=== PATIENT | male | born 1965 | race Caucasian/White ===

== ENCOUNTER 2017-06-25 08:50 | Inpatient (IN) | payer MEDICAID ==
[2017-06-25] MEDS ORDERED: cefOXitin SODIUM 2 GM in D5W 100 ML IV ONE (11:09)
--- NOTE | 2017-06-25 12:13 | PDHPUP ---
History & Physical Update H&P update statement: This history and physical update is based on an assessment of the patient which was completed after admission or registration (within 24 hours), but prior to the surgery/procedure. H&P update: H&P reviewed & patient examined, no change in patient's condition since H&P completed
[2017-06-25] MEDS ORDERED: BUPIVACAINE 0.5% 30 ML SDV ONE (12:23)
[2017-06-25] MEDS ORDERED: MIDAZOLAM 2 MG/2 ML VIAL IVP ONE (14:06)
--- NOTE | 2017-06-25 14:06 | PDANEPAE ---
ANE History of Present Illness R hemicolectomy ANE Past Medical History - Cardiovascular History Hx Hypertension: No Hx Arrhythmias: No Hx Chest Pain: No Hx Coronary Artery / Peripheral Vascular Disease: No Hx CHF / Valvular Disease: No Hx Palpitations: No - Pulmonary History Hx COPD: No Hx Asthma/Reactive Airway Disease: No Hx Recent Upper Respiratory Infection: No Hx Oxygen in Use at Home: No Hx Sleep Apnea: No Sleep Apnea Screening Result - Last Documented: Negative - Neurologic History Hx Cerebrovascular Accident: No Hx Seizures: No Hx Dementia: No - Endocrine History Hx Diabetes: No - Renal History Hx Renal Disorders: No - Liver History Hx Hepatic Disorders: No - Neurological & Psychiatric Hx Hx Neurological and Psychiatric Disorders: No - Cancer History Hx Cancer: No - Congenital Disorder History Hx Congenital Disorders: No - GI History Hx Gastrointestinal Disorders: Yes Gastrointestinal History Comment: colon mass - Chronic Pain History Chronic Pain: No - Surgical History Prior Surgeries: R arm "trauma surgery" involving brachial vein ANE Review of Systems Review of systems is: negative Review of Systems: - Exercise capacity Exercise capacity: >=4 METS METS (RN): 5 METS ANE Patient History - Allergies Allergies/Adverse Reactions: No Known Allergies Allergy (Unverified 06/24/17 12:07) - Home Medications Home medications: home medication list seen and reviewed Home Medications: NK [No Known Home Meds] 06/24/17 [Last Taken Unknown] - NPO status NPO Status: no food or drink >8 hours NPO Since - Liquids (Date): 06/24/17 NPO Since - Liquids (Time): 10:00 NPO Since - Solids (Date): 06/24/17 NPO Since - Solids (Time): 23:30 - Anes Hx Anes Hx: no prior problems - Smoking Hx Smoking Status: Never smoked - Family Anes Hx Family Anes Hx: none ANE Labs/Vital Signs - Labs Result Diagrams: 06/25/17 13:20 - Vital Signs Blood Pressure: 141/96 Heart Rate: 75 Respiratory Rate: 16 O2 Sat (%): 94 Height: 175.26 cm Weight: 68.039 kg ANE Physical Exam - Airway Neck exam: FROM Mallampati Score: Class 1 Mouth exam: poor dentition - Pulmonary Pulmonary: no respiratory distress - Cardiovascular Cardiovascular: regular rate and rhythym - ASA Status ASA Status: II ANE Anesthesia Plan Anesthesia Plan: general endotracheal anesthesia
[2017-06-25] MEDS ORDERED: ONDANSETRON 4 MG/2 ML VIAL ONE (14:22)
[2017-06-25] MEDS ORDERED: PROPOFOL 200 MG/20 ML VIAL ONE (14:22)
[2017-06-25] MEDS ORDERED: fentaNYL 100 MCG/2 ML INJ ONE ×4 (14:22→18:05)
[2017-06-25] MEDS ORDERED: HYDROmorphONE/DILAUDID 2 MG/ML INJ ONE (14:22)
[2017-06-25] MEDS ORDERED: ROCURONIUM 50 MG/5 ML VIAL ONE ×2 (14:22→15:32)
[2017-06-25] MEDS ORDERED: LIDOCAINE 2% 100 MG/5 ML SYR ONE (14:22)
[2017-06-25] MEDS ORDERED: SUGAMMADEX SODIUM 200 MG/2 ML VIAL IVP ONE (14:22)
[2017-06-25] MEDS ORDERED: DEXAMETHASONE 4 MG/ML VIAL ONE (14:22)
[2017-06-25] MEDS ORDERED: MIDAZOLAM 2 MG/2 ML VIAL ONE (14:28)
[2017-06-25] MEDS ORDERED: ESMOLOL HCL 100 MG/10 ML VIAL IV ONE (15:36)
[2017-06-25] MEDS ORDERED: LABETALOL HCL 5 MG/ML 20 ML MDV ONE (15:41)
[2017-06-25] MEDS ORDERED: ACETAMINOPHEN 500 MG TAB PO PRN (15:47)
[2017-06-25] MEDS ORDERED: ENALAPRILAT DIHYDRATE 1.25 MG/ML VIAL IVP PRN (15:47)
[2017-06-25] MEDS ORDERED: MEPERIDINE 25 MG/ML SYR IVP PRN (15:47)
[2017-06-25] MEDS ORDERED: DEXAMETHASONE 4 MG/ML VIAL IVP PRN (15:47)
[2017-06-25] MEDS ORDERED: OXYCODONE/APAP 5/325 TAB PO PRN (15:47)
[2017-06-25] MEDS ORDERED: ONDANSETRON 4 MG/2 ML VIAL IVP PRN ×2 (15:47→16:45)
[2017-06-25] MEDS ORDERED: NALOXONE HCL 0.4 MG/ML INJ IVP PRN (15:47)
[2017-06-25] MEDS ORDERED: PROMETHAZINE HCL 25 MG/ML INJ IVP PRN (15:47)
[2017-06-25] MEDS ORDERED: LABETALOL HCL 5 MG/ML 20 ML MDV IVP PRN (15:47)
[2017-06-25] MEDS ORDERED: HYDROCODONE/APAP 5/325 TAB PO PRN (15:47)
--- NOTE | 2017-06-25 15:50 | POSTANESTH ---
Post Anesthetic Evaluation Cardiovascular Status: Tx Hyper/Hypo-tension Respiratory Status: Normal, Stable, Similar to Pre-op Cond. Level of Consciousness/Mental Status: Can Participate in Eval, Mildly Sleepy, Arousable Pain Control: Adequate, Prn Tx Ordered Nausea/Vomiting Control: Adequate, Prn Tx Ordered Complications Possibly Related to Anesthesia: None Noted
[2017-06-25] MEDS ORDERED: KETOROLAC 30 MG/1 ML SDV ONE (16:11)
--- NOTE | 2017-06-25 16:44 | POSTOPPROG ---
Post Op Note Date of Operation: 06/25/17 Surgeon: Aquiles Rosa Anesthesiologist: Cole Lundberg Anesthesia: GET(General Endotracheal) Pre-op Diagnosis: Cecal adenocarcinoma Post-op Diagnosis: Same Procedure: Lap Right Hemicolectomy Findings: Distal cecal tumor. Normal Liver/peritoneal surfaces Inf/Abcess present in the surg proc area at time of surgery?: No EBL: Minimal Specimen(s): right colon
[2017-06-25] MEDS ORDERED: HYDROmorphONE/DILAUDID 1 MG/ML INJ IVP PRN (16:45)
[2017-06-25] MEDS: fentaNYL 100 MCG/2 ML INJ IVP PRN ×6 (16:51→18:15)
[2017-06-25] MEDS ORDERED: HYDROmorphONE/DILAUDID 1 MG/ML INJ ONE ×2 (16:53→17:14)
[2017-06-25] MEDS: HYDROmorphONE/DILAUDID 1 MG/ML INJ IVP PRN ×5 (16:56→18:09)
[2017-06-25] MEDS: KETOROLAC 15 MG/1 ML SDV IVP SCH ×2 (18:44→23:54)
[2017-06-25] MEDS: LR 1,000 ML IV SCH (18:45)
[2017-06-25] MEDS: HYDROmorphone HCL/NS/PF 0.4 MG/2 ML SYR IVP PRN (20:40)
--- NOTE | 2017-06-25 20:43 | GOP ---
[f rep st] OPERATIVE REPORT DATE OF OPERATION: 06/25/2017 SURGEON: Aquiles Rosa MD ANESTHESIA: General. ANESTHESIOLOGIST: Dr. Lundberg. PREOPERATIVE DIAGNOSIS: Cecal adenocarcinoma. POSTOPERATIVE DIAGNOSIS: Cecal adenocarcinoma. PROCEDURE PERFORMED: Laparoscopic hemicolectomy. FINDINGS: Easily palpable tumor with ink, normal liver and peritoneal surfaces. INDICATIONS: 51-year-old male with a newly-diagnosed cecal adenocarcinoma on routine colonoscopic screening. Preoperative imaging studies showed no suggestion of metastatic disease. He is undergoing surgical excision at this time. Risks and benefits were explained of bleeding, infection, anastomotic leak, ureter injury, open conversion, need for potential postoperative adjuvant therapies. All questions were answered. He desired to proceed. DESCRIPTION OF PROCEDURE: After general anesthesia was induced, the abdomen was pre-injected with 0.5% Marcaine with epinephrine. A vertical infraumbilical cutdown was created. A 10 mm trocar was placed under direct visualization. Two additional 5 mm left abdominal ports were inserted. Abdominal exploration revealed a smooth liver without nodularity. The peritoneal surfaces were all normal. No evidence of ascites was present. The tumor was identified sitting at the proximal cecum as evidenced by external tattooing. The right colon was mobilized off the white line of Toldt and taken down from the hepatic flexure. A small portion of omentum was left overlying the tumor itself. The terminal ileum and appendix were elevated out of the retroperitoneum. The ileocolic artery was circumferentially encompassed and divided with the LigaSure device. The mesenteric dissection was taken at its base to the duodenal sweep and straight up to the hepatic flexure of the colon. The ureter had been identified and preserved throughout this dissection. Having fully mobilized the floppy right colon, the midline incision was partially extended. A wound protector was applied. The colon was brought ex vivo. A stapled anastomosis was created in [id number] fashion using 2 firings. Excellent luminal patency was confirmed. Good bleeding was noted at all cut edges and specifically at the corners and anastomotic crotch. The colon was reduced back in the abdominal cavity. The infraumbilical incision was closed with a running Vicryl suture. The abdomen was re insufflated, and reexploration showed a pink, healthy-appearing anastomosis without evidence of ongoing bleeding. The trocars were removed under direct visualization. The wounds were closed with Monocryl and Dermabond. The patient was taken to recovery uneventfully. /[id number]/MODL MTDD
[2017-06-25] MEDS: cefOXitin SODIUM 1 GM in D5W 50 ML IV SCH (21:06)
[2017-06-26] MEDS: HYDROmorphone HCL/NS/PF 0.4 MG/2 ML SYR IVP PRN ×5 (01:49→23:11)
[2017-06-26] MEDS: cefOXitin SODIUM 1 GM in D5W 50 ML IV SCH ×2 (03:31→08:17)
[2017-06-26] MEDS: KETOROLAC 15 MG/1 ML SDV IVP SCH ×4 (05:11→23:11)
[2017-06-26] MEDS ORDERED: SIMETHICONE 80 MG TAB CHEW PO ONE (06:00)
[2017-06-26] MEDS: HYDROCODONE/APAP 5/325 TAB PO PRN ×3 (06:11→14:11)
[2017-06-26] MEDS: LR 1,000 ML IV SCH ×2 (07:54→20:32)
--- NOTE | 2017-06-26 09:33 | ASMTCASEMG ---
Living Arrangements What is your living Answers: Alone arrangement? Who do you live with? Type Of Residence What kind of residence do Answers: House you live in? Discharge Plan Comments Coordination Status Comments Notes: Pt is a 51 y/o man admitted for malignant neoplasm of colon and ascending colon. Anticipates that pt will d/c independent when medically stable. No therapies ordered at this time. CM available for d/c needs. Plan: Independent Date Signed: 06/26/2017 09:33 AM Electronically Signed By:BERTHA Gill
--- NOTE | 2017-06-26 16:32 | SOAPPROG ---
SOAP Progress Note Assessment/Plan: Assessment:c/o spasms/pain overnight. under better control when he remembers to use pain meds. no nausea. ambulated x3. currently comfortable with norco/ dilaudid. no flatus. avss. general - anxious but comfortable. abd min dist, soft, approp incis tender. no erythema. ext normal. pod#1 s/p lap r mariann - cecal adenoca. will change pain regimen to scheduled meds. add antispasmodic. cont to ambulate. diet as able. care plan reviewed with patient and nursing staff. Plan: 06/26/17 16:29 Objective: Vital Signs Temp Pulse Resp BP Pulse Ox 36.8 C 89 16 125/90 H 91 L 06/26/17 11:20 06/26/17 11:20 06/26/17 11:20 06/26/17 11:20 06/26/17 11:20 Laboratory Results 06/26/17 04:59 06/26/17 04:59 06/25/17 06/26/17 06/27/17 05:59 05:59 05:59 Intake Total 1475 Output Total 140 375 Balance 1335 -375 ICD10 Worksheet Patient Problems: Problems Problem Status Onset Colon adenocarcinoma Acute - ICD10 Problem Qualifiers (1) Colon adenocarcinoma
[2017-06-26] MEDS: DIAZEPAM 5 MG TAB PO PRN (17:21)
[2017-06-26] MEDS: oxyCODONE IR 5 MG TAB PO SCH ×2 (17:50→21:57)
[2017-06-26] MEDS: DICYCLOMINE 10 MG CAP PO PRN (20:52)
[2017-06-27] MEDS: oxyCODONE IR 5 MG TAB PO SCH ×6 (01:50→21:33)
[2017-06-27] MEDS: DICYCLOMINE 10 MG CAP PO PRN ×2 (04:05→21:33)
[2017-06-27] MEDS: KETOROLAC 15 MG/1 ML SDV IVP SCH ×3 (05:19→17:47)
[2017-06-27 05:38] LABS: PLATELET COUNT 212 10^3/uL (150-400)
[2017-06-27] MEDS: LR 1,000 ML IV SCH (06:23)
--- NOTE | 2017-06-27 07:38 | SOAPPROG ---
SOAP Progress Note Assessment/Plan: Assessment:good progress overnight. pain significantly better with scheduled meds - no further breakthrough spasm episodes. upset with staff last evening regarding diet. doing much better with overnight rest. min pain. no nausea. no flatus. hungry. afebrile. 130/90. pulse 80's (110-140 during his episode last evening). comfortable. abd min dist, soft. incis clean. wbc 3. pod#2 s /p lap r mariann. slow progress. diet as able. ambulate. path pending. c/o spasms/pain overnight. under better control when he remembers to use pain meds. no nausea. ambulated x3. currently comfortable with norco/dilaudid. no flatus. avss. general - anxious but comfortable. abd min dist, soft, approp incis tender. no erythema. ext normal. pod#1 s/p lap r mariann - cecal adenoca. will change pain regimen to scheduled meds. add antispasmodic. cont to ambulate. diet as able. care plan reviewed with patient and nursing staff. Plan: 06/26/17 16:29 06/27/17 07:37 06/27/17 07:44 Objective: Vital Signs Temp Pulse Resp BP Pulse Ox 37.3 C 84 16 134/90 H 95 06/27/17 07:10 06/27/17 07:10 06/27/17 07:10 06/27/17 07:10 06/27/17 07:10 Laboratory Results 06/27/17 05:10 06/26/17 04:59 06/26/17 06/27/17 06/28/17 05:59 05:59 05:59 Intake Total 1475 1700 1085 Output Total 140 875 Balance 8290 [id number] ICD10 Worksheet Patient Problems: Problems Problem Status Onset Colon adenocarcinoma Acute - ICD10 Problem Qualifiers (1) Colon adenocarcinoma
[2017-06-27] MEDS: DIAZEPAM 5 MG TAB PO PRN ×2 (08:25→14:29)
[2017-06-27] MEDS: HYDROmorphone HCL/NS/PF 0.4 MG/2 ML SYR IVP PRN ×2 (08:25→21:33)
--- NOTE | 2017-06-27 18:02 | SOAPPROG ---
SOAP Progress Note Assessment/Plan: Assessment:no issues throughout day. pain remains well controlled. deja po. small flatus. no nausea. only ambulated once. afebrile. vss (persistent elevated diastolic bp - no prior PCP). abd dist, soft, min tender. needs to ambulate more. no new issues noted. good progress overnight. pain significantly better with scheduled meds - no further breakthrough spasm episodes. upset with staff last evening regarding diet. doing much better with overnight rest. min pain. no nausea. no flatus. hungry. afebrile. 130/90. pulse 80's (110-140 during his episode last evening). comfortable. abd min dist, soft. incis clean. wbc 3. pod#2 s /p lap r mariann. slow progress. diet as able. ambulate. path pending. c/o spasms/pain overnight. under better control when he remembers to use pain meds. no nausea. ambulated x3. currently comfortable with norco/dilaudid. no flatus. avss. general - anxious but comfortable. abd min dist, soft, approp incis tender. no erythema. ext normal. pod#1 s/p lap r mariann - cecal adenoca. will change pain regimen to scheduled meds. add antispasmodic. cont to ambulate. diet as able. care plan reviewed with patient and nursing staff. Plan: 06/26/17 16:29 06/27/17 07:37 06/27/17 07:44 06/27/17 18:00 Objective: Vital Signs Temp Pulse Resp BP Pulse Ox 36.4 C 108 H 20 125/97 H 92 06/27/17 17:54 06/27/17 17:54 06/27/17 15:53 06/27/17 15:53 06/27/17 17:54 Laboratory Results 06/27/17 05:10 06/26/17 04:59 06/26/17 06/27/17 06/28/17 05:59 05:59 05:59 Intake Total 1475 1700 1085 Output Total 140 875 Balance [phone] ICD10 Worksheet Patient Problems: Problems Problem Status Onset Colon adenocarcinoma Acute - ICD10 Problem Qualifiers (1) Colon adenocarcinoma
[2017-06-28] MEDS: DIAZEPAM 5 MG TAB PO PRN ×4 (00:11→21:30)
[2017-06-28] MEDS: KETOROLAC 15 MG/1 ML SDV IVP SCH ×4 (00:11→18:10)
[2017-06-28] MEDS: oxyCODONE IR 5 MG TAB PO SCH ×6 (02:40→23:38)
[2017-06-28] MEDS: DICYCLOMINE 10 MG CAP PO PRN ×3 (05:36→20:41)
[2017-06-28] MEDS: HYDROmorphone HCL/NS/PF 0.4 MG/2 ML SYR IVP PRN ×2 (08:54→13:30)
[2017-06-28] MEDS: LR 1,000 ML IV SCH (13:39)
[2017-06-28] MEDS ORDERED: HYDROmorphONE/DILAUDID 1 MG/ML INJ IVP PRN (15:08)
--- NOTE | 2017-06-28 17:19 | SOAPPROG ---
SOAP Progress Note Assessment/Plan: Assessment: no complaints. min pain. no nausea. small flatus and belching. tachy overnight. ambulating in halls comfortably. afebrile. p 100's. wbc 7. abd dist, soft, min tender. no erythema. pod#3 s/p lap r mariann. persistent tachy - CXR and EKG ordered. CXR with large free air - will pursue CT to assess for anast leak. additional reccs to follow (obs if contained vs re- explor). no issues throughout day. pain remains well controlled. deja po. small flatus. no nausea. only ambulated once. afebrile. vss (persistent elevated diastolic bp - no prior PCP). abd dist, soft, min tender. needs to ambulate more. no new issues noted. good progress overnight. pain significantly better with scheduled meds - no further breakthrough spasm episodes. upset with staff last evening regarding diet. doing much better with overnight rest. min pain. no nausea. no flatus. hungry. afebrile. 130/90. pulse 80's (110-140 during his episode last evening). comfortable. abd min dist, soft. incis clean. wbc 3. pod#2 s /p lap r mariann. slow progress. diet as able. ambulate. path pending. c/o spasms/pain overnight. under better control when he remembers to use pain meds. no nausea. ambulated x3. currently comfortable with norco/dilaudid. no flatus. avss. general - anxious but comfortable. abd min dist, soft, approp incis tender. no erythema. ext normal. pod#1 s/p lap r mariann - cecal adenoca. will change pain regimen to scheduled meds. add antispasmodic. cont to ambulate. diet as able. care plan reviewed with patient and nursing staff. Plan: 06/26/17 16:29 06/27/17 07:37 06/27/17 07:44 06/27/17 18:00 06/28/17 17:15 Objective: Vital Signs Temp Pulse Resp BP Pulse Ox 36.5 C 111 H 20 133/86 H 94 06/28/17 15:59 06/28/17 15:59 06/28/17 15:59 06/28/17 15:59 06/28/17 15:59 Laboratory Results 06/28/17 08:31 06/28/17 08:31 06/27/17 06/28/17 06/29/17 05:59 05:59 05:59 Intake Total 1700 1635 1213 Output Total 875 Balance 825 1635 1213 ICD10 Worksheet Patient Problems: Problems Problem Status Onset Colon adenocarcinoma Acute - ICD10 Problem Qualifiers (1) Colon adenocarcinoma
[2017-06-28] MEDS ORDERED: IOPAMIDOL (ISOVUE-300) 100 ML BTL ONE (19:24)
[2017-06-29] MEDS: KETOROLAC 15 MG/1 ML SDV IVP SCH ×5 (00:29→23:54)
[2017-06-29] MEDS: D5W 1/2 NS W/ 20 KCl/L 1,000 ML IV SCH (00:34)
[2017-06-29] MEDS: cefOXitin SODIUM 1 GM in NS 50 ML IV SCH ×5 (00:34→23:54)
[2017-06-29] MEDS: oxyCODONE IR 5 MG TAB PO SCH ×3 (05:06→17:17)
[2017-06-29] MEDS ORDERED: BUPIVACAINE 0.5% 30 ML SDV ONE (07:25)
--- NOTE | 2017-06-29 07:31 | SOAPPROG ---
SOAP Progress Note Assessment/Plan: Assessment: c/o sweats overnight. no pain or nausea. Tm 101.6, persist tachy. comfortable. abd dist, soft, min tender, no erythema. wbc 5. heightened clinical concern for leak/abscess remains - will proceed with diag lap today am. risks and benefits reviewed with patient. he is in agreement. no complaints. min pain. no nausea. small flatus and belching. tachy overnight. ambulating in halls comfortably. afebrile. p 100's. wbc 7. abd dist, soft, min tender. no erythema. pod#3 s/p lap r mariann. persistent tachy - CXR and EKG ordered. CXR with large free air - will pursue CT to assess for anast leak. additional reccs to follow (obs if contained vs re-explor). no issues throughout day. pain remains well controlled. deja po. small flatus. no nausea. only ambulated once. afebrile. vss (persistent elevated diastolic bp - no prior PCP). abd dist, soft, min tender. needs to ambulate more. no new issues noted. good progress overnight. pain significantly better with scheduled meds - no further breakthrough spasm episodes. upset with staff last evening regarding diet. doing much better with overnight rest. min pain. no nausea. no flatus. hungry. afebrile. 130/90. pulse 80's (110-140 during his episode last evening). comfortable. abd min dist, soft. incis clean. wbc 3. pod#2 s /p lap r mariann. slow progress. diet as able. ambulate. path pending. c/o spasms/pain overnight. under better control when he remembers to use pain meds. no nausea. ambulated x3. currently comfortable with norco/dilaudid. no flatus. avss. general - anxious but comfortable. abd min dist, soft, approp incis tender. no erythema. ext normal. pod#1 s/p lap r mariann - cecal adenoca. will change pain regimen to scheduled meds. add antispasmodic. cont to ambulate. diet as able. care plan reviewed with patient and nursing staff. Plan: 06/26/17 16:29 06/27/17 07:37 06/27/17 07:44 06/27/17 18:00 06/28/17 17:15 06/29/17 07:29 Objective: Vital Signs Temp Pulse Resp BP Pulse Ox 36.6 C 145 H 18 123/80 H 93 06/29/17 04:00 06/29/17 04:00 06/29/17 04:00 06/29/17 04:00 06/29/17 04:00 Laboratory Results 06/29/17 04:51 06/28/17 08:31 06/28/17 06/29/17 06/30/17 05:59 05:59 05:59 Intake Total 1635 1213 Balance 1635 1213 ICD10 Worksheet Patient Problems: Problems Problem Status Onset Colon adenocarcinoma Acute - ICD10 Problem Qualifiers (1) Colon adenocarcinoma
[2017-06-29] MEDS ORDERED: MIDAZOLAM 2 MG/2 ML VIAL IVP ONE (08:10)
[2017-06-29] MEDS ORDERED: MIDAZOLAM 2 MG/2 ML VIAL ONE (08:21)
--- NOTE | 2017-06-29 08:32 | PDANEPAE ---
ANE History of Present Illness Laparoscope probable laparotomy S/P Colon resection Ileus ANE Past Medical History - Cardiovascular History Hx Hypertension: No Hx Arrhythmias: No Hx Chest Pain: No Hx Coronary Artery / Peripheral Vascular Disease: No Hx CHF / Valvular Disease: No Hx Palpitations: No - Pulmonary History Hx COPD: No Hx Asthma/Reactive Airway Disease: No Hx Recent Upper Respiratory Infection: No Hx Oxygen in Use at Home: No Hx Sleep Apnea: No Sleep Apnea Screening Result - Last Documented: Negative - Neurologic History Hx Cerebrovascular Accident: No Hx Seizures: No Hx Dementia: No - Endocrine History Hx Diabetes: No Hypothyroid: No Hyperthyroid: No Obesity: no - Renal History Hx Renal Disorders: No - Liver History Hx Hepatic Disorders: No - Neurological & Psychiatric Hx Hx Neurological and Psychiatric Disorders: No - Cancer History Hx Cancer: No - Congenital Disorder History Hx Congenital Disorders: No - GI History Hx Gastrointestinal Disorders: Yes Gastrointestinal History Comment: colon mass - Chronic Pain History Chronic Pain: No - Surgical History Prior Surgeries: R arm "trauma surgery" involving brachial vein ANE Review of Systems Review of Systems: - Exercise capacity METS (RN): 5 METS ANE Patient History - Allergies Allergies/Adverse Reactions: No Known Allergies Allergy (Unverified 06/24/17 12:07) - Home Medications Home Medications: NK [No Known Home Meds] 06/24/17 [Last Taken Unknown] - NPO status NPO Since - Liquids (Date): 06/29/17 (Full stomach ileus) NPO Since - Liquids (Time): 03:00 NPO Since - Solids (Date): 06/29/17 NPO Since - Solids (Time): 03:00 - Smoking Hx Smoking Status: Never smoked Marijuana use: No - Family Anes Hx Family Anes Hx: none ANE Labs/Vital Signs - Labs Result Diagrams: 06/29/17 04:51 06/28/17 08:31 - Vital Signs Blood Pressure: 124/88 Heart Rate: 131 Respiratory Rate: 16 O2 Sat (%): 91 Height: 175.26 cm Weight: 68.039 kg ANE Physical Exam - Airway Neck exam: FROM Mallampati Score: Class 2 - Pulmonary Pulmonary: no respiratory distress, no rales or rhonchi - Cardiovascular Cardiovascular: no murmur, rub, or gallop, tachycardia - ASA Status ASA Status: III, E ANE Anesthesia Plan Anesthesia Plan: general endotracheal anesthesia (Awake NG tube pre op) Specialized Airway: video laryngoscope
[2017-06-29] MEDS ORDERED: PROPOFOL/EMULSION 500 MG/50 ML BOTTLE IV ONE (08:40)
[2017-06-29] MEDS ORDERED: fentaNYL 100 MCG/2 ML INJ ONE ×3 (08:41→11:29)
[2017-06-29] MEDS ORDERED: ROCURONIUM 50 MG/5 ML VIAL ONE (09:13)
[2017-06-29] MEDS ORDERED: SUCCINYLCHOLINE CHLORIDE 200 MG/10 ML SYR IVP ONE (09:13)
[2017-06-29] MEDS ORDERED: ONDANSETRON 4 MG/2 ML VIAL ONE (09:13)
[2017-06-29] MEDS ORDERED: HYDROmorphONE/DILAUDID 2 MG/ML INJ ONE (09:43)
[2017-06-29] MEDS ORDERED: SUGAMMADEX SODIUM 200 MG/2 ML VIAL IVP ONE (10:24)
[2017-06-29] MEDS ORDERED: fentaNYL 100 MCG/2 ML INJ IVP PRN (10:47)
[2017-06-29] MEDS ORDERED: ONDANSETRON 4 MG/2 ML VIAL IVP PRN (10:47)
[2017-06-29] MEDS ORDERED: NALOXONE HCL 0.4 MG/ML INJ IVP PRN (10:47)
[2017-06-29] MEDS ORDERED: OXYCODONE/APAP 5/325 TAB PO PRN (10:47)
[2017-06-29] MEDS ORDERED: HYDROmorphONE/DILAUDID 1 MG/ML INJ IVP PRN (10:47)
[2017-06-29] MEDS ORDERED: HYDROmorphONE/DILAUDID 2 MG/ML INJ IVP PRN (10:56)
--- NOTE | 2017-06-29 10:56 | POSTOPPROG ---
Post Op Note Date of Operation: 06/29/17 Surgeon: Aquiles Rosa Portable Track Line Marker: John Cabello Anesthesiologist: Lashawn Gilbert Anesthesia: GET(General Endotracheal) Pre-op Diagnosis: Ischemic anastomosis Post-op Diagnosis: Same Procedure: Dx lap, anastomotic revision Findings: ischemic anastomosis - all contained Inf/Abcess present in the surg proc area at time of surgery?: Yes Depth: Organ Space EBL: Minimal Specimen(s): anastomosis
[2017-06-29] MEDS ORDERED: HYDROmorphONE/DILAUDID 1 MG/ML INJ ONE (11:30)
--- NOTE | 2017-06-29 12:06 | ASMTCMCOM ---
CM Note CM Note Notes: Spoke w/RN, pt had another surgery but still anticipates pt will be independent at dc. CM available for any changes. DC Plan: Home Independent Date Signed: 06/29/2017 12:06 PM Electronically Signed By:Junie Vicente RN
--- NOTE | 2017-06-29 12:13 | GOP ---
[f rep st] OPERATIVE REPORT DATE OF OPERATION: 06/29/2017 SURGEON: Aquiles Rosa MD FIBERGLASS SKI MAKER: John Cabello MD ANESTHESIA: General. ANESTHESIOLOGIST: Lashawn Gilbert MD PREOPERATIVE DIAGNOSIS: Anastomotic leak. POSTOPERATIVE DIAGNOSIS: Anastomotic leak. PROCEDURE PERFORMED: Diagnostic laparoscopy, open partial colectomy with anastomotic revision. FINDINGS: Ischemic anastomosis with contained leak. INDICATIONS: 51-year-old male 4 days status post a laparoscopic right hemicolectomy. He has had persistent tachycardia with a fever overnight. Imaging studies disclose more than expected free intraabdominal air postoperatively. CT imaging shows no free extravasation of fluid. Given the high clinical suspicion for leak, he is taken back to the operating today for re -evaluation. Risks and benefits were including of bleeding, infection, open conversion, bowel injury, need for additional surgical intervention, as well as others. All questions were answered. He desires to proceed. DESCRIPTION OF PROCEDURE: General anesthesia was induced. The abdomen was pre- injected with 0.5% Marcaine with epinephrine. The prior infraumbilical incision was reopened. A 10 mm trocar was placed under direct visualization. Two additional 5 mm left abdominal ports were re-inserted. Abdominal exploration revealed old blood within the pelvis, as well as around the liver. The anastomosis, which was noted to be sitting just beneath the gallbladder, was bluntly teased apart. There was evidence of anastomotic ischemia with a contained perforation. There was no evidence of fecal contamination at any point. The umbilical incision was extended. The anastomosis was externalized. Further exploration showed areas of ischemia around the staple line. The small bowel and colon were further transected, taking the mesentery between clamps and ties back to healthy-appearing ends. A [id number] stapled anastomosis was created with the stapling defect being closed transversely and a layered PDS closure. Excellent luminal patency was confirmed. The cut ends appeared pink, healthy, and peristalsing. The anastomosis returned back to the abdominal cavity. The omentum was placed over the wound and across the visceral contents. The abdomen was copiously irrigated until clear. Satisfactory hemostasis was assured. The umbilical wound was closed with a running PDS suture. The wounds were closed with Monocryl suture followed by Dermabond. The patient was taken to Recovery uneventfully. /[id number]/MODL MTDD
--- NOTE | 2017-06-29 15:44 | SOAPPROG ---
SOAP Progress Note Assessment/Plan: Assessment: postop check - no problems. pain adeq controlled. nausea controlled. afebrile. comfortable. abd approp tenderness. doing well. ambulate. IVF/ABX. clears. supportive care. c/o sweats overnight. no pain or nausea. Tm 101.6, persist tachy. comfortable. abd dist, soft, min tender, no erythema. wbc 5. heightened clinical concern for leak/abscess remains - will proceed with diag lap today am. risks and benefits reviewed with patient. he is in agreement. no complaints. min pain. no nausea. small flatus and belching. tachy overnight. ambulating in halls comfortably. afebrile. p 100's. wbc 7. abd dist, soft, min tender. no erythema. pod#3 s/p lap r mariann. persistent tachy - CXR and EKG ordered. CXR with large free air - will pursue CT to assess for anast leak. additional reccs to follow (obs if contained vs re-explor). no issues throughout day. pain remains well controlled. deja po. small flatus. no nausea. only ambulated once. afebrile. vss (persistent elevated diastolic bp - no prior PCP). abd dist, soft, min tender. needs to ambulate more. no new issues noted. good progress overnight. pain significantly better with scheduled meds - no further breakthrough spasm episodes. upset with staff last evening regarding diet. doing much better with overnight rest. min pain. no nausea. no flatus. hungry. afebrile. 130/90. pulse 80's (110-140 during his episode last evening). comfortable. abd min dist, soft. incis clean. wbc 3. pod#2 s /p lap r mariann. slow progress. diet as able. ambulate. path pending. c/o spasms/pain overnight. under better control when he remembers to use pain meds. no nausea. ambulated x3. currently comfortable with norco/dilaudid. no flatus. avss. general - anxious but comfortable. abd min dist, soft, approp incis tender. no erythema. ext normal. pod#1 s/p lap r mariann - cecal adenoca. will change pain regimen to scheduled meds. add antispasmodic. cont to ambulate. diet as able. care plan reviewed with patient and nursing staff. Plan: 06/26/17 16:29 06/27/17 07:37 06/27/17 07:44 06/27/17 18:00 06/28/17 17:15 06/29/17 07:29 06/29/17 15:41 Objective: Vital Signs Temp Pulse Resp BP Pulse Ox 36.9 C 128 H 16 114/86 H 88 L 06/29/17 14:38 06/29/17 14:38 06/29/17 14:38 06/29/17 14:38 06/29/17 14:38 Laboratory Results 06/29/17 04:51 06/28/17 08:31 06/28/17 06/29/17 06/30/17 05:59 05:59 05:59 Intake Total 1635 1213 24556 Output Total 200 Balance 1635 1213 [id number] ICD10 Worksheet Patient Problems: Problems Problem Status Onset Colon adenocarcinoma Acute - ICD10 Problem Qualifiers (1) Colon adenocarcinoma
[2017-06-29] MEDS: ONDANSETRON 4 MG/2 ML VIAL IVP PRN (16:37)
[2017-06-29] MEDS: HYDROmorphONE/DILAUDID 1 MG/ML INJ IVP PRN ×2 (16:37→23:37)
--- NOTE | 2017-06-29 20:07 | SOAPPROG ---
SOAP Progress Note Assessment/Plan: Assessment: recovering well. afebrile. intermittent tachy - expected postop. min pain. deja clears. comfortable. no new reccs. postop check - no problems. pain adeq controlled. nausea controlled. afebrile. comfortable. abd approp tenderness. doing well. ambulate. IVF/ ABX. clears. supportive care. c/o sweats overnight. no pain or nausea. Tm 101.6, persist tachy. comfortable. abd dist, soft, min tender, no erythema. wbc 5. heightened clinical concern for leak/abscess remains - will proceed with diag lap today am. risks and benefits reviewed with patient. he is in agreement. no complaints. min pain. no nausea. small flatus and belching. tachy overnight. ambulating in halls comfortably. afebrile. p 100's. wbc 7. abd dist, soft, min tender. no erythema. pod#3 s/p lap r mariann. persistent tachy - CXR and EKG ordered. CXR with large free air - will pursue CT to assess for anast leak. additional reccs to follow (obs if contained vs re-explor). no issues throughout day. pain remains well controlled. deja po. small flatus. no nausea. only ambulated once. afebrile. vss (persistent elevated diastolic bp - no prior PCP). abd dist, soft, min tender. needs to ambulate more. no new issues noted. good progress overnight. pain significantly better with scheduled meds - no further breakthrough spasm episodes. upset with staff last evening regarding diet. doing much better with overnight rest. min pain. no nausea. no flatus. hungry. afebrile. 130/90. pulse 80's (110-140 during his episode last evening). comfortable. abd min dist, soft. incis clean. wbc 3. pod#2 s /p lap r mariann. slow progress. diet as able. ambulate. path pending. c/o spasms/pain overnight. under better control when he remembers to use pain meds. no nausea. ambulated x3. currently comfortable with norco/dilaudid. no flatus. avss. general - anxious but comfortable. abd min dist, soft, approp incis tender. no erythema. ext normal. pod#1 s/p lap r mariann - cecal adenoca. will change pain regimen to scheduled meds. add antispasmodic. cont to ambulate. diet as able. care plan reviewed with patient and nursing staff. Plan: 06/26/17 16:29 06/27/17 07:37 06/27/17 07:44 06/27/17 18:00 06/28/17 17:15 06/29/17 07:29 06/29/17 15:41 06/29/17 20:07 Objective: Vital Signs Temp Pulse Resp BP Pulse Ox 36.6 C 113 H 16 108/74 95 06/29/17 19:41 06/29/17 19:41 06/29/17 19:41 06/29/17 19:41 06/29/17 19:41 Laboratory Results 06/29/17 04:51 06/28/17 08:31 06/28/17 06/29/17 06/30/17 05:59 05:59 05:59 Intake Total 1635 1213 82666 Output Total 200 Balance 1635 1213 [id number] ICD10 Worksheet Patient Problems: Problems Problem Status Onset Colon adenocarcinoma Acute - ICD10 Problem Qualifiers (1) Colon adenocarcinoma
[2017-06-30] MEDS: oxyCODONE IR 5 MG TAB PO SCH ×5 (00:26→23:44)
[2017-06-30] MEDS: D5W 1/2 NS W/ 20 KCl/L 1,000 ML IV SCH (04:14)
[2017-06-30] MEDS: KETOROLAC 15 MG/1 ML SDV IVP SCH (05:26)
[2017-06-30] MEDS: cefOXitin SODIUM 1 GM in NS 50 ML IV SCH ×4 (05:27→23:44)
[2017-06-30] MEDS: DICYCLOMINE 10 MG CAP PO PRN (05:54)
[2017-06-30] MEDS ORDERED: LR 1,000 ML IV ONE (06:46)
--- NOTE | 2017-06-30 06:50 | SOAPPROG ---
SOAP Progress Note Assessment/Plan: Assessment: good night. pain well controlled. no nausea. belching. no flatus. afebrile. 90/70. 90's. comfortable. skin color good. abd dist. incis clean. min tender. pod#1/5 s/p re-explor. creat 1.3. clears. increase IVF. cefoxitin. hold toradol. recovering well. afebrile. intermittent tachy - expected postop. min pain. deja clears. comfortable. no new reccs. postop check - no problems. pain adeq controlled. nausea controlled. afebrile. comfortable. abd approp tenderness. doing well. ambulate. IVF/ ABX. clears. supportive care. c/o sweats overnight. no pain or nausea. Tm 101.6, persist tachy. comfortable. abd dist, soft, min tender, no erythema. wbc 5. heightened clinical concern for leak/abscess remains - will proceed with diag lap today am. risks and benefits reviewed with patient. he is in agreement. no complaints. min pain. no nausea. small flatus and belching. tachy overnight. ambulating in halls comfortably. afebrile. p 100's. wbc 7. abd dist, soft, min tender. no erythema. pod#3 s/p lap r mariann. persistent tachy - CXR and EKG ordered. CXR with large free air - will pursue CT to assess for anast leak. additional reccs to follow (obs if contained vs re-explor). no issues throughout day. pain remains well controlled. deja po. small flatus. no nausea. only ambulated once. afebrile. vss (persistent elevated diastolic bp - no prior PCP). abd dist, soft, min tender. needs to ambulate more. no new issues noted. good progress overnight. pain significantly better with scheduled meds - no further breakthrough spasm episodes. upset with staff last evening regarding diet. doing much better with overnight rest. min pain. no nausea. no flatus. hungry. afebrile. 130/90. pulse 80's (110-140 during his episode last evening). comfortable. abd min dist, soft. incis clean. wbc 3. pod#2 s /p lap r mariann. slow progress. diet as able. ambulate. path pending. c/o spasms/pain overnight. under better control when he remembers to use pain meds. no nausea. ambulated x3. currently comfortable with norco/dilaudid. no flatus. avss. general - anxious but comfortable. abd min dist, soft, approp incis tender. no erythema. ext normal. pod#1 s/p lap r mariann - cecal adenoca. will change pain regimen to scheduled meds. add antispasmodic. cont to ambulate. diet as able. care plan reviewed with patient and nursing staff. Plan: 06/26/17 16:29 06/27/17 07:37 06/27/17 07:44 06/27/17 18:00 06/28/17 17:15 06/29/17 07:29 06/29/17 15:41 06/29/17 20:07 06/30/17 06:48 Objective: Vital Signs Temp Pulse Resp BP Pulse Ox 36.1 C 80 18 93/65 L 97 06/30/17 04:00 06/30/17 04:00 06/30/17 04:00 06/30/17 04:00 06/30/17 04:00 Laboratory Results 06/30/17 05:06 06/30/17 05:06 06/29/17 06/30/17 07/01/17 05:59 05:59 05:59 Intake Total 1213 57375 Output Total 200 Balance 1213 97279 ICD10 Worksheet Patient Problems: Problems Problem Status Onset Colon adenocarcinoma Acute - ICD10 Problem Qualifiers (1) Colon adenocarcinoma
[2017-06-30] MEDS: DIAZEPAM 5 MG TAB PO PRN ×3 (07:29→20:56)
[2017-06-30] MEDS: HYDROmorphONE/DILAUDID 1 MG/ML INJ IVP PRN ×3 (07:48→22:41)
--- NOTE | 2017-06-30 17:43 | SOAPPROG ---
SOAP Progress Note Assessment/Plan: Assessment: pt doing well. strongly requesting to have diet advanced. small flatus. no nausea. afebrile. p 100's. ok to try advancing as able. good night. pain well controlled. no nausea. belching. no flatus. afebrile. 90/70. 90's. comfortable. skin color good. abd dist. incis clean. min tender. pod#1/5 s/p re-explor. creat 1.3. clears. increase IVF. cefoxitin. hold toradol. recovering well. afebrile. intermittent tachy - expected postop. min pain. deja clears. comfortable. no new reccs. postop check - no problems. pain adeq controlled. nausea controlled. afebrile. comfortable. abd approp tenderness. doing well. ambulate. IVF/ ABX. clears. supportive care. c/o sweats overnight. no pain or nausea. Tm 101.6, persist tachy. comfortable. abd dist, soft, min tender, no erythema. wbc 5. heightened clinical concern for leak/abscess remains - will proceed with diag lap today am. risks and benefits reviewed with patient. he is in agreement. no complaints. min pain. no nausea. small flatus and belching. tachy overnight. ambulating in halls comfortably. afebrile. p 100's. wbc 7. abd dist, soft, min tender. no erythema. pod#3 s/p lap r mariann. persistent tachy - CXR and EKG ordered. CXR with large free air - will pursue CT to assess for anast leak. additional reccs to follow (obs if contained vs re-explor). no issues throughout day. pain remains well controlled. deja po. small flatus. no nausea. only ambulated once. afebrile. vss (persistent elevated diastolic bp - no prior PCP). abd dist, soft, min tender. needs to ambulate more. no new issues noted. good progress overnight. pain significantly better with scheduled meds - no further breakthrough spasm episodes. upset with staff last evening regarding diet. doing much better with overnight rest. min pain. no nausea. no flatus. hungry. afebrile. 130/90. pulse 80's (110-140 during his episode last evening). comfortable. abd min dist, soft. incis clean. wbc 3. pod#2 s /p lap r mariann. slow progress. diet as able. ambulate. path pending. c/o spasms/pain overnight. under better control when he remembers to use pain meds. no nausea. ambulated x3. currently comfortable with norco/dilaudid. no flatus. avss. general - anxious but comfortable. abd min dist, soft, approp incis tender. no erythema. ext normal. pod#1 s/p lap r mariann - cecal adenoca. will change pain regimen to scheduled meds. add antispasmodic. cont to ambulate. diet as able. care plan reviewed with patient and nursing staff. Plan: 06/26/17 16:29 06/27/17 07:37 06/27/17 07:44 06/27/17 18:00 06/28/17 17:15 06/29/17 07:29 06/29/17 15:41 06/29/17 20:07 06/30/17 06:48 06/30/17 17:40 Objective: Vital Signs Temp Pulse Resp BP Pulse Ox 36.6 C 118 H 16 144/98 H 90 L 06/30/17 16:16 06/30/17 16:16 06/30/17 16:16 06/30/17 16:16 06/30/17 16:16 Laboratory Results 06/30/17 05:06 06/30/17 05:06 06/29/17 06/30/17 07/01/17 05:59 05:59 05:59 Intake Total 1213 43945 1200 Output Total 200 Balance 1213 63039 1200 ICD10 Worksheet Patient Problems: Problems Problem Status Onset Colon adenocarcinoma Acute - ICD10 Problem Qualifiers (1) Colon adenocarcinoma
[2017-07-01] MEDS: HYDROmorphONE/DILAUDID 1 MG/ML INJ IVP PRN ×6 (01:19→17:18)
[2017-07-01] MEDS: D5W 1/2 NS W/ 20 KCl/L 1,000 ML IV SCH (01:27)
[2017-07-01] MEDS: DIAZEPAM 5 MG TAB PO PRN ×3 (03:02→20:17)
[2017-07-01] MEDS: oxyCODONE IR 5 MG TAB PO SCH ×3 (06:23→18:09)
[2017-07-01] MEDS: cefOXitin SODIUM 1 GM in NS 50 ML IV SCH ×2 (06:23→12:16)
[2017-07-01] MEDS ORDERED: POTASSIUM CL 20 MEQ TAB PO ONE (09:33)
[2017-07-01] MEDS: ONDANSETRON 4 MG/2 ML VIAL IVP PRN (10:13)
--- NOTE | 2017-07-01 12:48 | SOAPPROG ---
SOAP Progress Note Assessment/Plan: Assessment: appropriately frustrated - mild nausea, min flatus. pain controlled. afebrile. 140-150/90-100. p 100's. uop increasing. abd soft, dist. midline incis tenderness with erythema - opened with small old hematoma drained - no feculent drainage. pod#2/6 s/p r mariann/anast revision. postop ileus. hypokalemia. persistent HTN/tachy. incis erythema - opened. cont supportive care, IVF. patient has been insistent on eating - encourage not to push po too hard. cont cefoxitin. local wound care instruction explained to patient/staff. start metoprolol. K+ suppl. continue ambulation. family at bedside - all providing excellent support for patient. pt doing well. strongly requesting to have diet advanced. small flatus. no nausea. afebrile. p 100's. ok to try advancing as able. good night. pain well controlled. no nausea. belching. no flatus. afebrile. 90/70. 90's. comfortable. skin color good. abd dist. incis clean. min tender. pod#1/5 s/p re-explor. creat 1.3. clears. increase IVF. cefoxitin. hold toradol. recovering well. afebrile. intermittent tachy - expected postop. min pain. deja clears. comfortable. no new reccs. postop check - no problems. pain adeq controlled. nausea controlled. afebrile. comfortable. abd approp tenderness. doing well. ambulate. IVF/ ABX. clears. supportive care. c/o sweats overnight. no pain or nausea. Tm 101.6, persist tachy. comfortable. abd dist, soft, min tender, no erythema. wbc 5. heightened clinical concern for leak/abscess remains - will proceed with diag lap today am. risks and benefits reviewed with patient. he is in agreement. no complaints. min pain. no nausea. small flatus and belching. tachy overnight. ambulating in halls comfortably. afebrile. p 100's. wbc 7. abd dist, soft, min tender. no erythema. pod#3 s/p lap r mariann. persistent tachy - CXR and EKG ordered. CXR with large free air - will pursue CT to assess for anast leak. additional reccs to follow (obs if contained vs re-explor). no issues throughout day. pain remains well controlled. deja po. small flatus. no nausea. only ambulated once. afebrile. vss (persistent elevated diastolic bp - no prior PCP). abd dist, soft, min tender. needs to ambulate more. no new issues noted. good progress overnight. pain significantly better with scheduled meds - no further breakthrough spasm episodes. upset with staff last evening regarding diet. doing much better with overnight rest. min pain. no nausea. no flatus. hungry. afebrile. 130/90. pulse 80's (110-140 during his episode last evening). comfortable. abd min dist, soft. incis clean. wbc 3. pod#2 s /p lap r mariann. slow progress. diet as able. ambulate. path pending. c/o spasms/pain overnight. under better control when he remembers to use pain meds. no nausea. ambulated x3. currently comfortable with norco/dilaudid. no flatus. avss. general - anxious but comfortable. abd min dist, soft, approp incis tender. no erythema. ext normal. pod#1 s/p lap r mariann - cecal adenoca. will change pain regimen to scheduled meds. add antispasmodic. cont to ambulate. diet as able. care plan reviewed with patient and nursing staff. Plan: 06/26/17 16:29 06/27/17 07:37 06/27/17 07:44 06/27/17 18:00 06/28/17 17:15 06/29/17 07:29 06/29/17 15:41 06/29/17 20:07 06/30/17 06:48 06/30/17 17:40 07/01/17 12:48 07/01/17 12:48 Objective: Vital Signs Temp Pulse Resp BP Pulse Ox 37.3 C 120 H 20 152/92 H 93 07/01/17 07:27 07/01/17 11:29 07/01/17 11:29 07/01/17 11:29 07/01/17 11:29 Laboratory Results 07/01/17 04:49 07/01/17 04:49 06/30/17 07/01/17 07/02/17 05:59 05:59 05:59 Intake Total 05218 1200 1086 Output Total 200 600 Balance 30981 600 1086 ICD10 Worksheet Patient Problems: Problems Problem Status Onset Colon adenocarcinoma Acute - ICD10 Problem Qualifiers (1) Colon adenocarcinoma
[2017-07-01] MEDS: METOPROLOL TARTRATE 25 MG TAB PO SCH ×2 (13:48→20:21)
[2017-07-01] MEDS: PIPERACILLIN/TAZO 3.375 GM/DEX 50 ML IV SCH (18:11)
[2017-07-01] MEDS: DICYCLOMINE 10 MG CAP PO PRN (20:21)
[2017-07-02] MEDS: PIPERACILLIN/TAZO 3.375 GM/DEX 50 ML IV SCH ×5 (01:04→23:10)
[2017-07-02] MEDS: D5W 1/2 NS W/ 20 KCl/L 1,000 ML IV SCH ×2 (01:04→17:25)
[2017-07-02] MEDS: oxyCODONE IR 5 MG TAB PO SCH ×5 (01:04→23:12)
[2017-07-02] MEDS ORDERED: POTASSIUM CL 20 MEQ TAB PO ONE (07:25)
--- NOTE | 2017-07-02 07:29 | SOAPPROG ---
SOAP Progress Note Assessment/Plan: Assessment: slept well. less nausea. no flatus. in good spirits. afebrile. bp 120's. p 80-100. comfortable. abd less dist. incis with increased erythema - lower portion opened with purulent drainage. wbc 11. k 3.4. will repeat CT to exclude abscess. replenish k+. cont zosyn. appropriately frustrated - mild nausea, min flatus. pain controlled. afebrile. 140-150/90-100. p 100's. uop increasing. abd soft, dist. midline incis tenderness with erythema - opened with small old hematoma drained - no feculent drainage. pod#2/6 s/p r mariann/anast revision. postop ileus. hypokalemia. persistent HTN/tachy. incis erythema - opened. cont supportive care, IVF. patient has been insistent on eating - encourage not to push po too hard. cont cefoxitin. local wound care instruction explained to patient/ staff. start metoprolol. K+ suppl. continue ambulation. family at bedside - all providing excellent support for patient. pt doing well. strongly requesting to have diet advanced. small flatus. no nausea. afebrile. p 100's. ok to try advancing as able. good night. pain well controlled. no nausea. belching. no flatus. afebrile. 90/70. 90's. comfortable. skin color good. abd dist. incis clean. min tender. pod#1/5 s/p re-explor. creat 1.3. clears. increase IVF. cefoxitin. hold toradol. recovering well. afebrile. intermittent tachy - expected postop. min pain. deja clears. comfortable. no new reccs. postop check - no problems. pain adeq controlled. nausea controlled. afebrile. comfortable. abd approp tenderness. doing well. ambulate. IVF/ ABX. clears. supportive care. c/o sweats overnight. no pain or nausea. Tm 101.6, persist tachy. comfortable. abd dist, soft, min tender, no erythema. wbc 5. heightened clinical concern for leak/abscess remains - will proceed with diag lap today am. risks and benefits reviewed with patient. he is in agreement. no complaints. min pain. no nausea. small flatus and belching. tachy overnight. ambulating in halls comfortably. afebrile. p 100's. wbc 7. abd dist, soft, min tender. no erythema. pod#3 s/p lap r mariann. persistent tachy - CXR and EKG ordered. CXR with large free air - will pursue CT to assess for anast leak. additional reccs to follow (obs if contained vs re-explor). no issues throughout day. pain remains well controlled. deja po. small flatus. no nausea. only ambulated once. afebrile. vss (persistent elevated diastolic bp - no prior PCP). abd dist, soft, min tender. needs to ambulate more. no new issues noted. good progress overnight. pain significantly better with scheduled meds - no further breakthrough spasm episodes. upset with staff last evening regarding diet. doing much better with overnight rest. min pain. no nausea. no flatus. hungry. afebrile. 130/90. pulse 80's (110-140 during his episode last evening). comfortable. abd min dist, soft. incis clean. wbc 3. pod#2 s /p lap r mariann. slow progress. diet as able. ambulate. path pending. c/o spasms/pain overnight. under better control when he remembers to use pain meds. no nausea. ambulated x3. currently comfortable with norco/dilaudid. no flatus. avss. general - anxious but comfortable. abd min dist, soft, approp incis tender. no erythema. ext normal. pod#1 s/p lap r mariann - cecal adenoca. will change pain regimen to scheduled meds. add antispasmodic. cont to ambulate. diet as able. care plan reviewed with patient and nursing staff. Plan: 06/26/17 16:29 06/27/17 07:37 06/27/17 07:44 06/27/17 18:00 06/28/17 17:15 06/29/17 07:29 06/29/17 15:41 06/29/17 20:07 06/30/17 06:48 06/30/17 17:40 07/01/17 12:48 07/01/17 12:48 07/02/17 07:26 Objective: Vital Signs Temp Pulse Resp BP Pulse Ox 36.8 C 94 16 127/87 H 94 07/02/17 02:45 07/02/17 02:45 07/02/17 02:45 07/02/17 02:45 07/02/17 02:45 Laboratory Results 07/02/17 04:22 07/02/17 04:22 07/01/17 07/02/17 07/03/17 05:59 05:59 05:59 Intake Total 1200 1486 Output Total 600 650 Balance 600 836 ICD10 Worksheet Patient Problems: Problems Problem Status Onset Colon adenocarcinoma Acute - ICD10 Problem Qualifiers (1) Colon adenocarcinoma
[2017-07-02] MEDS: HYDROmorphONE/DILAUDID 1 MG/ML INJ IVP PRN ×4 (07:54→21:09)
[2017-07-02] MEDS: ONDANSETRON 4 MG/2 ML VIAL IVP PRN ×2 (08:09→13:20)
[2017-07-02] MEDS: METOPROLOL TARTRATE 25 MG TAB PO SCH ×2 (09:19→21:13)
[2017-07-02] MEDS: DIAZEPAM 5 MG TAB PO PRN (11:32)
--- NOTE | 2017-07-02 12:25 | ASMTCMCOM ---
CM Note CM Note Notes: Per RN, patient is doing OK but might be developing infection at surgical site. Abdomen CT ordered and pending. Current CM discharge plan remains home independent, but we are available for any changes in his needs. Date Signed: 07/02/2017 12:25 PM Electronically Signed By:Magdalena Cisneros RN
[2017-07-02] MEDS ORDERED: IOPAMIDOL (ISOVUE-300) 100 ML BTL ONE (12:49)
[2017-07-03] MEDS: oxyCODONE IR 5 MG TAB PO SCH ×3 (05:18→19:58)
[2017-07-03] MEDS: PIPERACILLIN/TAZO 3.375 GM/DEX 50 ML IV SCH ×3 (05:19→19:57)
[2017-07-03] MEDS: HYDROmorphONE/DILAUDID 1 MG/ML INJ IVP PRN ×3 (06:18→15:11)
[2017-07-03] MEDS: D5W 1/2 NS W/ 20 KCl/L 1,000 ML IV SCH (08:37)
[2017-07-03] MEDS: METOPROLOL TARTRATE 25 MG TAB PO SCH ×2 (08:38→19:57)
[2017-07-03] MEDS: DICYCLOMINE 10 MG CAP PO PRN (08:38)
[2017-07-03] MEDS ORDERED: diphenhydrAMINE 25 MG CAP PO PRN (09:48)
[2017-07-03] MEDS ORDERED: BISACODYL 10 MG SUPP PR PRN (09:53)
--- NOTE | 2017-07-03 09:58 | SOAPPROG ---
SOAP Progress Note Assessment/Plan: Assessment: c/o urinary incontinence overnight. no flatus or bm. no nausea. afebrile. bp 130's. p 80-90. appears comfortable. abd dist, open incis with resolved erythema. drainage more serosang. min abd tenderness. wbc 14. k 3.9. given increasing leucocytosis, will request CT drainage of RUQ fluid collection-suspect abscess. cont zosyn. dulcolax. hypokalemia resolved. buffcap IV - starting to mobilize more and incontinent overnight. care plan reviewed at length with patient and nursing staff. slept well. less nausea. no flatus. in good spirits. afebrile. bp 120's. p 80-100. comfortable. abd less dist. incis with increased erythema - lower portion opened with purulent drainage. wbc 11. k 3.4. will repeat CT to exclude abscess. replenish k+. cont zosyn. appropriately frustrated - mild nausea, min flatus. pain controlled. afebrile. 140-150/90-100. p 100's. uop increasing. abd soft, dist. midline incis tenderness with erythema - opened with small old hematoma drained - no feculent drainage. pod#2/6 s/p r mariann/anast revision. postop ileus. hypokalemia. persistent HTN/tachy. incis erythema - opened. cont supportive care, IVF. patient has been insistent on eating - encourage not to push po too hard. cont cefoxitin. local wound care instruction explained to patient/ staff. start metoprolol. K+ suppl. continue ambulation. family at bedside - all providing excellent support for patient. pt doing well. strongly requesting to have diet advanced. small flatus. no nausea. afebrile. p 100's. ok to try advancing as able. good night. pain well controlled. no nausea. belching. no flatus. afebrile. 90/70. 90's. comfortable. skin color good. abd dist. incis clean. min tender. pod#1/5 s/p re-explor. creat 1.3. clears. increase IVF. cefoxitin. hold toradol. recovering well. afebrile. intermittent tachy - expected postop. min pain. deja clears. comfortable. no new reccs. postop check - no problems. pain adeq controlled. nausea controlled. afebrile. comfortable. abd approp tenderness. doing well. ambulate. IVF/ ABX. clears. supportive care. c/o sweats overnight. no pain or nausea. Tm 101.6, persist tachy. comfortable. abd dist, soft, min tender, no erythema. wbc 5. heightened clinical concern for leak/abscess remains - will proceed with diag lap today am. risks and benefits reviewed with patient. he is in agreement. no complaints. min pain. no nausea. small flatus and belching. tachy overnight. ambulating in halls comfortably. afebrile. p 100's. wbc 7. abd dist, soft, min tender. no erythema. pod#3 s/p lap r mariann. persistent tachy - CXR and EKG ordered. CXR with large free air - will pursue CT to assess for anast leak. additional reccs to follow (obs if contained vs re-explor). no issues throughout day. pain remains well controlled. deja po. small flatus. no nausea. only ambulated once. afebrile. vss (persistent elevated diastolic bp - no prior PCP). abd dist, soft, min tender. needs to ambulate more. no new issues noted. good progress overnight. pain significantly better with scheduled meds - no further breakthrough spasm episodes. upset with staff last evening regarding diet. doing much better with overnight rest. min pain. no nausea. no flatus. hungry. afebrile. 130/90. pulse 80's (110-140 during his episode last evening). comfortable. abd min dist, soft. incis clean. wbc 3. pod#2 s /p lap r mariann. slow progress. diet as able. ambulate. path pending. c/o spasms/pain overnight. under better control when he remembers to use pain meds. no nausea. ambulated x3. currently comfortable with norco/dilaudid. no flatus. avss. general - anxious but comfortable. abd min dist, soft, approp incis tender. no erythema. ext normal. pod#1 s/p lap r mariann - cecal adenoca. will change pain regimen to scheduled meds. add antispasmodic. cont to ambulate. diet as able. care plan reviewed with patient and nursing staff. Plan: 06/26/17 16:29 06/27/17 07:37 06/27/17 07:44 06/27/17 18:00 06/28/17 17:15 06/29/17 07:29 06/29/17 15:41 06/29/17 20:07 06/30/17 06:48 06/30/17 17:40 07/01/17 12:48 07/01/17 12:48 07/02/17 07:26 07/03/17 09:54 Objective: Vital Signs Temp Pulse Resp BP Pulse Ox 36.9 C 85 16 132/77 H 92 07/03/17 07:33 07/03/17 08:38 07/03/17 07:33 07/03/17 08:38 07/03/17 07:33 Laboratory Results 07/03/17 05:08 07/03/17 05:08 07/02/17 07/03/17 07/04/17 05:59 05:59 05:59 Intake Total 1488 925 Output Total 650 Balance 836 925 ICD10 Worksheet Patient Problems: Problems Problem Status Onset Colon adenocarcinoma Acute - ICD10 Problem Qualifiers (1) Colon adenocarcinoma
[2017-07-03 11:54] LABS: INR 1.25 (0.83-1.16); PROTIME(PATIENT) 15.9 SEC (12.0-15.0)
[2017-07-03] MEDS: DIAZEPAM 5 MG TAB PO PRN ×2 (12:31→16:45)
[2017-07-03] MEDS ORDERED: MIDAZOLAM 2 MG/2 ML VIAL IVP PRN (12:38)
[2017-07-03] MEDS ORDERED: fentaNYL 100 MCG/2 ML INJ IVP PRN (12:38)
[2017-07-03] MEDS ORDERED: FLUMAZENIL 0.5 MG/5 ML MDV IVP PRN (12:38)
[2017-07-03] MEDS ORDERED: NALOXONE HCL 0.4 MG/ML INJ IVP PRN (12:38)
[2017-07-03] MEDS ORDERED: MEPERIDINE 25 MG/ML SYR IVP PRN (12:38)
[2017-07-03] MEDS ORDERED: NS 1,000 ML IV SCH (12:45)
--- NOTE | 2017-07-03 13:08 | PDRADPRE ---
Radiology History & Physical Indication for procedure: abscess Surgical history: Partial colectomy Home medications: NK [No Known Home Meds] 06/24/17 [Last Taken Unknown] Allergies/Adverse Reactions: No Known Allergies Allergy (Unverified 06/24/17 12:07) Mental status: A&Ox3 Heart exam: regular rate and rhythm Lungs exam: clear to auscultation Mallampati Score: Class 1
--- NOTE | 2017-07-03 15:19 | PDRADPN ---
Radiology Procedure Note Date of Procedure: 07/03/17 Radiologist: Aquiles Velasco Plate Printer(s): Demetri Lyon Anesthesia: IV Sedation Pre-op Diagnosis: RUQ abscess Post-op Diagnosis: same Indication: Abscess Procedure: U/S guided abscess drainage Finding(s): 5cm abscess RUQ Inf/Abcess present in the surg proc area at time of surgery?: Yes Depth: Deep Incisional (Fascial) (Infrahepatic) EBL: Minimal Drains: Other Specimen(s): 60mL purulent fluid sent to lab
--- NOTE | 2017-07-03 15:20 | PDPROPOC ---
Sedation Plan of Care Sedation Plan of Care: vital signs stable, mental status noted, patient educated of risks, benefits, alternatives, patient can tolerate sedation ASA Classification: ASA 2 Planned drugs: fentanyl Mallampati Score: Class 1 Mallampati Reference Image: Patient passed 3-3-2 rule?: Yes
[2017-07-03] MEDS: ACETAMINOPHEN 325 MG TAB PO PRN (16:44)
[2017-07-03] MEDS ORDERED: DIAZEPAM 5 MG TAB PO PRN (16:46)
--- NOTE | 2017-07-03 16:55 | SOAPPROG ---
SOAP Progress Note Assessment/Plan: Assessment: had RUQ drain placed - prob infected hematoma. no postprocedural issues. patient approp frustrated - support offered. drain flushed. cont current abx regimen and aggressive drain irrigation. may need repeat imaging later this week. c/o urinary incontinence overnight. no flatus or bm. no nausea. afebrile. bp 130's. p 80-90. appears comfortable. abd dist, open incis with resolved erythema. drainage more serosang. min abd tenderness. wbc 14. k 3.9. given increasing leucocytosis, will request CT drainage of RUQ fluid collection- suspect abscess. cont zosyn. dulcolax. hypokalemia resolved. buffcap IV - starting to mobilize more and incontinent overnight. care plan reviewed at length with patient and nursing staff. slept well. less nausea. no flatus. in good spirits. afebrile. bp 120's. p 80-100. comfortable. abd less dist. incis with increased erythema - lower portion opened with purulent drainage. wbc 11. k 3.4. will repeat CT to exclude abscess. replenish k+. cont zosyn. appropriately frustrated - mild nausea, min flatus. pain controlled. afebrile. 140-150/90-100. p 100's. uop increasing. abd soft, dist. midline incis tenderness with erythema - opened with small old hematoma drained - no feculent drainage. pod#2/6 s/p r mariann/anast revision. postop ileus. hypokalemia. persistent HTN/tachy. incis erythema - opened. cont supportive care, IVF. patient has been insistent on eating - encourage not to push po too hard. cont cefoxitin. local wound care instruction explained to patient/ staff. start metoprolol. K+ suppl. continue ambulation. family at bedside - all providing excellent support for patient. pt doing well. strongly requesting to have diet advanced. small flatus. no nausea. afebrile. p 100's. ok to try advancing as able. good night. pain well controlled. no nausea. belching. no flatus. afebrile. 90/70. 90's. comfortable. skin color good. abd dist. incis clean. min tender. pod#1/5 s/p re-explor. creat 1.3. clears. increase IVF. cefoxitin. hold toradol. recovering well. afebrile. intermittent tachy - expected postop. min pain. deaj clears. comfortable. no new reccs. postop check - no problems. pain adeq controlled. nausea controlled. afebrile. comfortable. abd approp tenderness. doing well. ambulate. IVF/ ABX. clears. supportive care. c/o sweats overnight. no pain or nausea. Tm 101.6, persist tachy. comfortable. abd dist, soft, min tender, no erythema. wbc 5. heightened clinical concern for leak/abscess remains - will proceed with diag lap today am. risks and benefits reviewed with patient. he is in agreement. no complaints. min pain. no nausea. small flatus and belching. tachy overnight. ambulating in halls comfortably. afebrile. p 100's. wbc 7. abd dist, soft, min tender. no erythema. pod#3 s/p lap r mariann. persistent tachy - CXR and EKG ordered. CXR with large free air - will pursue CT to assess for anast leak. additional reccs to follow (obs if contained vs re-explor). no issues throughout day. pain remains well controlled. deja po. small flatus. no nausea. only ambulated once. afebrile. vss (persistent elevated diastolic bp - no prior PCP). abd dist, soft, min tender. needs to ambulate more. no new issues noted. good progress overnight. pain significantly better with scheduled meds - no further breakthrough spasm episodes. upset with staff last evening regarding diet. doing much better with overnight rest. min pain. no nausea. no flatus. hungry. afebrile. 130/90. pulse 80's (110-140 during his episode last evening). comfortable. abd min dist, soft. incis clean. wbc 3. pod#2 s /p lap r mariann. slow progress. diet as able. ambulate. path pending. c/o spasms/pain overnight. under better control when he remembers to use pain meds. no nausea. ambulated x3. currently comfortable with norco/dilaudid. no flatus. avss. general - anxious but comfortable. abd min dist, soft, approp incis tender. no erythema. ext normal. pod#1 s/p lap r mariann - cecal adenoca. will change pain regimen to scheduled meds. add antispasmodic. cont to ambulate. diet as able. care plan reviewed with patient and nursing staff. Plan: 06/26/17 16:29 06/27/17 07:37 06/27/17 07:44 06/27/17 18:00 06/28/17 17:15 06/29/17 07:29 06/29/17 15:41 06/29/17 20:07 06/30/17 06:48 06/30/17 17:40 07/01/17 12:48 07/01/17 12:48 07/02/17 07:26 07/03/17 09:54 07/03/17 16:54 Objective: Vital Signs Temp Pulse Resp BP Pulse Ox 37.1 C 91 16 143/85 H 92 07/03/17 15:01 07/03/17 15:01 07/03/17 15:01 07/03/17 15:01 07/03/17 15:01 Laboratory Results 07/03/17 05:08 07/03/17 05:08 07/02/17 07/03/17 07/04/17 05:59 05:59 05:59 Intake Total 1486 925 100 Output Total 650 650 Balance 836 925 -550 PT 15.9 SEC (12.0-15.0) H 07/03/17 11:30 INR 1.25 (0.83-1.16) H 07/03/17 11:30 ICD10 Worksheet Patient Problems: Problems Problem Status Onset Colon adenocarcinoma Acute - ICD10 Problem Qualifiers (1) Colon adenocarcinoma
[2017-07-04] MEDS: PIPERACILLIN/TAZO 3.375 GM/DEX 50 ML IV SCH ×5 (00:32→23:27)
[2017-07-04] MEDS: oxyCODONE IR 5 MG TAB PO SCH ×5 (00:32→23:26)
[2017-07-04] MEDS: HYDROmorphONE/DILAUDID 1 MG/ML INJ IVP PRN ×4 (04:04→16:28)
[2017-07-04 05:28] LABS: PLATELET COUNT 493 10^3/uL (150-400)
[2017-07-04] MEDS: METOPROLOL TARTRATE 25 MG TAB PO SCH ×2 (09:42→20:52)
--- NOTE | 2017-07-04 14:34 | SOAPPROG ---
SOAP Progress Note Assessment/Plan: Assessment/Plan: POD#9/5 s/p lap right colectomy for T3 N1 colon ca and takeback for leak Frustrated appropriately for slow progression Ileus WBC down to 11 from 14 after ruq drain placement OOB RRR CTA Abd soft non tympanitic Incision open packed. min serous drainage PRAMOD serosanguinous thin fluid. No edema Not tachycardic or hypoxic Ileus Plt count still increasing Adv diet encourage oob axr in am if no fltus 07/04/17 14:28 Objective: Vital Signs Temp Pulse Resp BP Pulse Ox 36.9 C 86 16 133/89 H 89 L 07/04/17 11:38 07/04/17 11:38 07/04/17 11:38 07/04/17 11:38 07/04/17 11:38 Microbiology 07/03/17 13:47 Gram Stain - Final Liver - Aspirate Laboratory Results 07/04/17 04:45 07/04/17 04:45 07/03/17 07/04/17 07/05/17 05:59 05:59 05:59 Intake Total 925 100 Output Total 1350 640 Balance 925 -1250 -640 PT 15.9 SEC (12.0-15.0) H 07/03/17 11:30 INR 1.25 (0.83-1.16) H 07/03/17 11:30 ICD10 Worksheet Patient Problems: Problems Problem Status Onset Colon adenocarcinoma Acute
[2017-07-04] MEDS: ACETAMINOPHEN 325 MG TAB PO PRN (17:44)
[2017-07-04] MEDS: oxyCODONE IR 5 MG TAB PO PRN (20:53)
[2017-07-05 05:36] LABS: PLATELET COUNT 614 10^3/uL (150-400)
[2017-07-05] MEDS: oxyCODONE IR 5 MG TAB PO SCH ×4 (05:45→23:43)
[2017-07-05] MEDS: PIPERACILLIN/TAZO 3.375 GM/DEX 50 ML IV SCH ×4 (05:45→23:42)
[2017-07-05] MEDS: METOPROLOL TARTRATE 25 MG TAB PO SCH ×2 (08:10→20:54)
[2017-07-05] MEDS: oxyCODONE IR 5 MG TAB PO PRN ×3 (08:11→20:55)
--- NOTE | 2017-07-05 09:06 | SOAPPROG ---
SOAP Progress Note Assessment/Plan: Assessment/Plan: POD#9/5 s/p lap right colectomy for T3 N1 colon ca and takeback for leak Frustrated appropriately for slow progression Ileus resolving BM in afternoon WBC 11 Cx polymicrobial on zosyn OOB RRR CTA Abd soft non tympanitic Incision open packed. min serous drainage PRAMOD serosanguinous thin fluid. No edema Not tachycardic or hypoxic Ileus Plt count still increasing no 614 continue to monitor sodium and chloride elevated will encourage free water may require bolus Adv diet encourage oob, ambulation, IS 07/05/17 09:04 Objective: Vital Signs Temp Pulse Resp BP Pulse Ox 36.8 C 80 16 134/84 H 92 07/05/17 07:33 07/05/17 07:33 07/05/17 07:33 07/05/17 07:33 07/05/17 07:33 Microbiology 07/03/17 13:47 Gram Stain - Final Liver - Aspirate Laboratory Results 07/05/17 04:50 07/05/17 04:50 07/04/17 07/05/17 07/06/17 05:59 05:59 05:59 Intake Total 100 500 160 Output Total 1350 1335 50 Balance -1250 -835 110 PT 15.9 SEC (12.0-15.0) H 07/03/17 11:30 INR 1.25 (0.83-1.16) H 07/03/17 11:30 ICD10 Worksheet Patient Problems: Problems Problem Status Onset Colon adenocarcinoma Acute
[2017-07-05] MEDS: HYDROmorphONE/DILAUDID 1 MG/ML INJ IVP PRN (12:34)
[2017-07-05] MEDS: ONDANSETRON 4 MG/2 ML VIAL IVP PRN (12:46)
[2017-07-05] MEDS: ACETAMINOPHEN 325 MG TAB PO PRN (17:52)
[2017-07-06] MEDS: PIPERACILLIN/TAZO 3.375 GM/DEX 50 ML IV SCH ×3 (05:09→19:36)
[2017-07-06] MEDS: oxyCODONE IR 5 MG TAB PO SCH ×3 (05:09→17:05)
[2017-07-06] MEDS: HYDROmorphONE/DILAUDID 1 MG/ML INJ IVP PRN (05:19)
[2017-07-06 05:22] LABS: PLATELET COUNT 830 10^3/uL (150-400)
[2017-07-06] MEDS: oxyCODONE IR 5 MG TAB PO PRN ×2 (09:04→20:06)
--- NOTE | 2017-07-06 10:08 | SOAPPROG ---
SOAP Progress Note Assessment/Plan: Assessment/Plan: POD#9/5 s/p lap right colectomy for T3 N1 colon ca and takeback for leak Frustrated appropriately with slow progression Yesterday was "a bad day" Ileus resolving slowly WIll give suppository and start reglan WBC 11 no improvement Cx polymicrobial on zosyn lactobacillus on anaerobic cx yeast also grew out OOB 1x yesterday RRR CTA Abd soft non tympanitic Incision open min serous drainage PRAMOD serosanguinous thin fluid. No edema Not tachycardic or hypoxic Ileus persists AXR today (lytes normal) Start reglan/dulclox suppository Add diflucan as antifungal Plt count still increasing continue to monitor sodium and chloride elevated will encourage free water may require bolus Adv diet encourage oob, ambulation, IS 07/05/17 09:04 07/06/17 10:06 Objective: Vital Signs Temp Pulse Resp BP Pulse Ox 36.3 C 79 14 124/83 H 91 L 07/06/17 08:00 07/06/17 08:00 07/06/17 08:00 07/06/17 08:00 07/06/17 08:00 Microbiology 07/03/17 13:47 Gram Stain - Final Liver - Aspirate Laboratory Results 07/06/17 04:55 07/06/17 04:55 07/05/17 07/06/17 07/07/17 05:59 05:59 05:59 Intake Total 500 760 Output Total 1335 595 Balance -835 165 PT 15.9 SEC (12.0-15.0) H 07/03/17 11:30 INR 1.25 (0.83-1.16) H 07/03/17 11:30 ICD10 Worksheet Patient Problems: Problems Problem Status Onset Colon adenocarcinoma Acute
[2017-07-06] MEDS: IBUPROFEN 200 MG TAB PO PRN ×2 (10:24→17:02)
[2017-07-06] MEDS: METOPROLOL TARTRATE 25 MG TAB PO SCH ×2 (10:27→20:32)
[2017-07-06] MEDS: METOCLOPRAMIDE 10 MG/2 ML VIAL IVP SCH ×2 (10:27→17:03)
[2017-07-06] MEDS: FLUCONAZOLE/NaCl 100 ML IV SCH ×2 (12:02→13:12)
[2017-07-06] MEDS: ACETAMINOPHEN 325 MG TAB PO PRN (15:05)
--- NOTE | 2017-07-06 15:28 | ASMTCMCOM ---
CM Note CM Note Notes: Pt frustrated at slow progress in recovering after colectomy. Anticipate d/c will still be without CM needs but will continue to follow. Date Signed: 07/06/2017 03:27 PM Electronically Signed By:MAGDALENO Luz
[2017-07-07] MEDS: PIPERACILLIN/TAZO 3.375 GM/DEX 50 ML IV SCH ×5 (00:07→23:01)
[2017-07-07] MEDS: METOCLOPRAMIDE 10 MG/2 ML VIAL IVP SCH ×5 (00:07→23:01)
[2017-07-07] MEDS: oxyCODONE IR 5 MG TAB PO SCH ×2 (00:08→05:51)
--- NOTE | 2017-07-07 09:25 | SOAPPROG ---
SOAP Progress Note Assessment/Plan: Assessment/Plan: POD#12/8 s/p lap right colectomy for T3 N1 colon ca and takeback for leak Frustrated appropriately with slow progression Yesterday was much better. Oxycodone overnight 1 prn 1 scheduled. No IV narcotics Reglan seemed helpful Ileus resolving several BM yesterday Cx polymicrobial on zosyn lactobacillus on anaerobic cx yeast species on diflucan RRR CTA Abd soft non tympanitic Incision open min serous drainage PRAMOD serosanguinous thin fluid. No edema No tachycardia or hypoxia Ileus on axr 07/06 encourage oob, ambulation, IS Drain study 07/08 or 07/09 Wean pain medication Stop scheduled oxy. LEave tylenol/ibuprofen/oxy/dilaudid/valium prn 07/07/17 09:22 Objective: Vital Signs Temp Pulse Resp BP Pulse Ox 36.6 C 64 14 123/81 H 92 07/07/17 08:00 07/07/17 08:00 07/07/17 08:00 07/07/17 08:00 07/07/17 08:00 Microbiology 07/03/17 13:47 Gram Stain - Final Liver - Aspirate Laboratory Results 07/06/17 04:55 07/06/17 04:55 07/06/17 07/07/17 07/08/17 05:59 05:59 05:59 Intake Total 760 1500 Output Total 595 20 Balance 165 1480 PT 15.9 SEC (12.0-15.0) H 07/03/17 11:30 INR 1.25 (0.83-1.16) H 07/03/17 11:30 ICD10 Worksheet Patient Problems: Problems Problem Status Onset Colon adenocarcinoma Acute
[2017-07-07] MEDS: oxyCODONE IR 5 MG TAB PO PRN ×4 (09:46→20:40)
[2017-07-07] MEDS: ACETAMINOPHEN 325 MG TAB PO PRN ×3 (09:47→20:39)
[2017-07-07] MEDS: METOPROLOL TARTRATE 25 MG TAB PO SCH ×2 (09:48→20:40)
[2017-07-07] MEDS: FLUCONAZOLE/NaCl 100 ML IV SCH (09:53)
[2017-07-07] MEDS: IBUPROFEN 200 MG TAB PO PRN (14:00)
[2017-07-07 22:59] VITALS: RESP 16
[2017-07-08 05:20] LABS: PLATELET COUNT 962 10^3/uL (150-400)
[2017-07-08] MEDS: METOCLOPRAMIDE 10 MG/2 ML VIAL IVP SCH ×4 (06:08→23:56)
[2017-07-08] MEDS: PIPERACILLIN/TAZO 3.375 GM/DEX 50 ML IV SCH ×4 (06:08→23:55)
[2017-07-08] MEDS: oxyCODONE IR 5 MG TAB PO PRN ×4 (06:13→22:22)
[2017-07-08] MEDS: ACETAMINOPHEN 325 MG TAB PO PRN ×3 (06:13→22:22)
[2017-07-08] MEDS ORDERED: HYDROmorphONE/DILAUDID 1 MG/ML INJ IVP PRN (07:48)
[2017-07-08] MEDS: IBUPROFEN 200 MG TAB PO PRN (08:34)
[2017-07-08] MEDS: FLUCONAZOLE/NaCl 100 ML IV SCH (08:35)
[2017-07-08] MEDS: METOPROLOL TARTRATE 25 MG TAB PO SCH (09:06)
--- NOTE | 2017-07-08 10:00 | SOAPPROG ---
SOAP Progress Note Assessment/Plan: Assessment/Plan: POD#13/9 s/p lap right colectomy for T3 N1 colon ca and takeback for leak Yesterday was much better. 5 mg Oxycodone overnight. No IV narcotics Reglan seemed helpful Ileus resolving several BM and flatus WBC 9 Plt 900 Cx polymicrobial on zosyn lactobacillus on anaerobic cx lior dublinensis species on diflucan day 09/09 RRR CTA Abd soft non tympanitic Incision open min serous drainage PRAMOD serosanguinous thin fluid. No edema No tachycardia or hypoxia Ileus on axr 07/06 encourage oob, ambulation, IS Drain study 07/08 or 07/09 Wean pain medication Leave tylenol/ibuprofen/oxy/dilaudid/valium prn Stop metoprolol Anticipate d/c to home on reglan, oxycodone, augmentin and diflucan with or without drain in 24-48hr ?aspirin for elevated platelet count 07/08/17 09:56 Objective: Vital Signs Temp Pulse Resp BP Pulse Ox 36.7 C 77 16 144/90 H 93 07/08/17 07:27 07/08/17 07:27 07/08/17 07:27 07/08/17 07:27 07/08/17 07:27 Microbiology 07/03/17 13:47 Gram Stain - Final Liver - Aspirate Laboratory Results 07/08/17 04:40 07/06/17 04:55 07/07/17 07/08/17 07/09/17 05:59 05:59 05:59 Intake Total 1500 2600 Output Total 20 635 600 Balance 1480 1965 -600 PT 15.9 SEC (12.0-15.0) H 07/03/17 11:30 INR 1.25 (0.83-1.16) H 07/03/17 11:30 ICD10 Worksheet Patient Problems: Problems Problem Status Onset Colon adenocarcinoma Acute
--- NOTE | 2017-07-08 12:17 | ASMTCMCOM ---
CM Note CM Note Notes: D/C plan remains home independent. CM available should d/c needs arise. Date Signed: 07/08/2017 12:17 PM Electronically Signed By:Jaylyn Lara LCSW
[2017-07-08] MEDS ORDERED: IOPAMIDOL (ISOVUE-300) 100 ML BTL ONE (18:56)
[2017-07-09] MEDS: oxyCODONE IR 5 MG TAB PO PRN ×3 (02:55→12:18)
[2017-07-09] MEDS: IBUPROFEN 200 MG TAB PO PRN ×2 (03:53→10:04)
[2017-07-09] MEDS: PIPERACILLIN/TAZO 3.375 GM/DEX 50 ML IV SCH ×2 (05:36→12:18)
[2017-07-09] MEDS: ACETAMINOPHEN 325 MG TAB PO PRN ×2 (05:36→09:51)
[2017-07-09] MEDS: METOCLOPRAMIDE 10 MG/2 ML VIAL IVP SCH ×2 (05:49→12:19)
[2017-07-09 07:27] VITALS: BP 141/82; PULSE 74; TEMP 97.7; O2SAT 95
[2017-07-09] MEDS: FLUCONAZOLE/NaCl 100 ML IV SCH (09:56)
--- NOTE | 2017-07-09 16:25 | ASDISCHSUM ---
Discharge Information Plan Status:Home with No Needs Medically Cleared to Leave:07/08/2017 Discharge Date:07/09/2017 01:43 PM D/C Disposition: ADT D/C Disposition:Home, Routine, Self-Care Projected Discharge Date:07/09/2017 12:00 AM Transportation at D/C: Discharge Delay Reason: Follow-Up Date:07/09/2017 12:00 AM Discharge Slot: Final Diagnosis: Placement Information Patient Contact Information Contact Name:CARLIN Relationship:Father Address: Home Phone: Work Phone: City: Alternate Phone: State/Zip Code: Email: Financial Information Financial Class: Primary Plan Desc:[employer] [place] Primary Plan Number:[id number] Secondary Plan Desc: Secondary Plan Number: Assessment Information [facility] Initial CM Assessment Living Arrangements What is your living Answers: Alone arrangement? Who do you live with? Type Of Residence What kind of residence do Answers: House you live in? Discharge Plan Comments Coordination Status Comments Notes: Pt is a 51 y/o man admitted for malignant neoplasm of colon and ascending colon. Anticipates that pt will d/c independent when medically stable. No therapies ordered at this time. CM available for d/c needs. Plan: Independent Date Signed: 06/26/2017 09:33 AM Electronically Signed By:BERTHA Gill [facility] CM Progress Note CM Note CM Note Notes: Spoke w/[place], pt had another surgery but still anticipates [place] will be independent at [place]. CM available for any changes. DC Plan: Home Independent Date Signed: 06/29/2017 12:06 PM Electronically Signed By:Junie Vicente RN [facility] CM Progress Note CM Note CM Note Notes: Per RN, patient is doing OK but might be developing infection at surgical site. Abdomen CT ordered and pending. Current CM discharge plan remains home independent, but we are available for any changes in his needs. Date Signed: 07/02/2017 12:25 PM Electronically Signed By:Magdalena Cisneros RN [facility] CM Progress Note CM Note CM Note Notes: Pt frustrated at slow progress in recovering after colectomy. Anticipate d/c will still be without CM needs but will continue to follow. Date Signed: 07/06/2017 03:27 PM Electronically Signed By:MAGDALENO Luz [facility] CM Progress Note CM Note CM Note Notes: D/C plan remains home independent. CM available should d/c needs arise. Date Signed: 07/08/2017 12:17 PM Electronically Signed By:Jaylyn Lara LCSW Intervention Information
== END 2017-07-09 13:43 | disposition home or self-care (01) | DRG 330 ==
LOC: F3N 11:58 → F3E 16:02
PROVIDERS: ADMIT Surgery; ATTEND Surgery
PROC: 0DTF4ZZ Resection of Right Large Intestine, Percutaneous Endoscopic Approach (ICD-10-PCS; principal; 2017-06-25 13:30)
PROC: 0DB84ZZ Excision of Small Intestine, Percutaneous Endoscopic Approach (ICD-10-PCS; 2017-06-29 08:00)
PROC: 0DBF4ZZ Excision of Right Large Intestine, Percutaneous Endoscopic Approach (ICD-10-PCS; 2017-06-29 08:00)
PROC: 0W9H30Z Drainage of Retroperitoneum with Drainage Device, Percutaneous Approach (ICD-10-PCS; 2017-07-03)
DX: C18.2 Malignant neoplasm of ascending colon (principal); K68.11 Postprocedural retroperitoneal abscess; K91.89 Other postprocedural complications and disorders of digestive system; R32 Unspecified urinary incontinence
CPT/HCPCS: 87186-90; J0171; J0330; J0694; J0697; J1100; J1170; J1450; J1885; J2001; J2250; J2310; J2405; J2543; J2704; J2765; J3010; J3490; Q9967

== ENCOUNTER 2017-08-26 05:48 | Day surgery (SDC) | payer MEDICAID ==
[2017-08-26] MEDS ORDERED: LR 1,000 ML IV ONE (06:20)
[2017-08-26] MEDS ORDERED: LIDOCAINE 1% 2 ML INJ ID PRN (06:20)
--- NOTE | 2017-08-26 06:56 | PDANEPAE ---
ANE History of Present Illness 51 year old male w/ colon mass presents for vascular access (right IJ). ANE Past Medical History - Cardiovascular History Hx Hypertension: No Hx Arrhythmias: No Hx Chest Pain: No Hx Coronary Artery / Peripheral Vascular Disease: No Hx CHF / Valvular Disease: No Hx Palpitations: No - Pulmonary History Hx COPD: No Hx Asthma/Reactive Airway Disease: No Hx Recent Upper Respiratory Infection: No Hx Oxygen in Use at Home: No Hx Sleep Apnea: No Sleep Apnea Screening Result - Last Documented: Negative - Neurologic History Hx Cerebrovascular Accident: No Hx Seizures: No Hx Dementia: No - Endocrine History Hx Diabetes: No Hypothyroid: No Hyperthyroid: No Obesity: no - Renal History Hx Renal Disorders: No - Liver History Hx Hepatic Disorders: No - Neurological & Psychiatric Hx Hx Neurological and Psychiatric Disorders: No - Cancer History Hx Cancer: No - Congenital Disorder History Hx Congenital Disorders: No - GI History GERD: no Hx Gastrointestinal Disorders: Yes Gastrointestinal History Comment: colon mass - Chronic Pain History Chronic Pain: No - Surgical History Prior Surgeries: RT COLECTOMY 06/25/2017 WITH POST ANASTOMTIC LEAK. R arm "trauma surgery" involving brachial vein ANE Review of Systems Review of systems is: negative Review of Systems: - Exercise capacity Exercise capacity: >=4 METS METS (RN): 4 METS ANE Patient History - Allergies Allergies/Adverse Reactions: No Known Allergies Allergy (Unverified 06/24/17 12:07) - Home Medications Home medications: home medication list seen and reviewed Home Medications: Iron 08/26/17 [Last Taken 1 Day Ago ~08/25/17] - NPO status NPO Status: no food or drink >8 hours NPO Since - Liquids (Date): 08/25/17 NPO Since - Liquids (Time): 23:00 NPO Since - Solids (Date): 08/25/17 NPO Since - Solids (Time): 23:00 - Anes Hx Anes Hx: no prior problems - Smoking Hx Smoking Status: Never smoked Marijuana use: No - Alcohol Use Alcohol Use: None - Family Anes Hx Family Anes Hx: neg - N/A ANE Labs/Vital Signs - Vital Signs Vital Signs: reviewed preoperatively; see RN documention for details Blood Pressure: 117/83 Heart Rate: 104 Respiratory Rate: 18 O2 Sat (%): 93 Height: 175.26 cm Weight: 60.328 kg ANE Physical Exam - Airway Neck exam: FROM Mallampati Score: Class 2 Mouth exam: poor dentition, small mouth opening, abnormal chin Mouth image: 1 - Missing - Pulmonary Pulmonary: no respiratory distress - Cardiovascular Cardiovascular: regular rate and rhythym - ASA Status ASA Status: III ANE Anesthesia Plan Anesthesia Plan: MAC (GA discussed as "back-up" plan.) Total IV Anesthesia: Yes
--- NOTE | 2017-08-26 07:00 | PDHPUP ---
History & Physical Update H&P update statement: This history and physical update is based on an assessment of the patient which was completed after admission or registration (within 24 hours), but prior to the surgery/procedure. H&P update: H&P reviewed & patient examined, no change in patient's condition since H&P completed (plan for port placment today)
[2017-08-26] MEDS ORDERED: BUPIVACAINE/EPI 0.5% 30 ML SDV ONE (07:01)
--- NOTE | 2017-08-26 07:01 | POSTOPPROG ---
Post Op Note Date of Operation: 08/26/17 Surgeon: Aquiles Rosa Anesthesiologist: Deny King Anesthesia: IV Sedation Pre-op Diagnosis: colon cancer Post-op Diagnosis: same Procedure: RIJ single lumen power port with US/fluoro Inf/Abcess present in the surg proc area at time of surgery?: No EBL: Minimal
[2017-08-26] MEDS ORDERED: LIDOCAINE 1% 300 MG/30 ML SDV ONE (07:02)
[2017-08-26] MEDS ORDERED: PROPOFOL/EMULSION 500 MG/50 ML BOTTLE IV ONE ×2 (07:13→07:40)
[2017-08-26] MEDS ORDERED: HYDROCODONE/APAP 5/325 TAB PO PRN (07:34)
[2017-08-26] MEDS ORDERED: ONDANSETRON 4 MG/2 ML VIAL IVP PRN (07:34)
[2017-08-26] MEDS ORDERED: NALOXONE HCL 0.4 MG/ML INJ IVP PRN (07:34)
[2017-08-26] MEDS ORDERED: LR 500 ML IV PRN (07:34)
[2017-08-26] MEDS ORDERED: fentaNYL 100 MCG/2 ML INJ IVP PRN (07:34)
[2017-08-26 09:08] VITALS: RESP 14; TEMP 97.3; O2SAT 95
--- NOTE | 2017-08-26 09:25 | GOP ---
[f rep st] OPERATIVE REPORT DATE OF OPERATION: 08/26/2017 SURGEON: Aquiles Rosa MD ANESTHESIA: MAC. ANESTHESIOLOGIST: Dr. King. PREOPERATIVE DIAGNOSIS: Colon cancer. POSTOPERATIVE DIAGNOSIS: Colon cancer. PROCEDURE PERFORMED: Right internal jugular single-lumen PowerPort placement with ultrasound and flu oroscopic guidance. FINDINGS: INDICATIONS: A 51-year-old male with colon cancer. He is undergoing a port placement at this time. Risks and benefits were explained including, but not limited to, bleeding, infection, pneumothorax, as well as port malfunction. All questions were answered. He desires to proceed. DESCRIPTION OF PROCEDURE: After monitored anesthesia was started, the right neck and chest were infi ltrated with 1% lidocaine and 0.5% Marcaine. The jugular vein was directly punctured using ultrasoun d guidance. The guidewire passed into the atrium, which was confirmed using fluoroscopy. A counteri ncision was made on the chest wall. The port was tunneled cephalad. The single-lumen low-profile po rt was passed into the cavoatrial junction without resistance. There was good venous blood return wi th the port withdrawal. There was smooth contouring with the neck as well as satisfactory terminal p ositioning above the heart. The port flushed using heparinized saline solution. Hemostasis was assu red. The wounds were closed with absorbable suture of Dermabond the patient was taken to recovery un eventfully. Copy requested to: Danelle Bashir /[id number]/MODL
[2017-08-26 09:34] VITALS: BP 131/87; PULSE 94
--- NOTE | 2017-08-26 12:39 | POSTANESTH ---
Post Anesthetic Evaluation Cardiovascular Status: Normal, Stable, Similar to Pre-Op Cond Respiratory Status: Normal, Stable, Similar to Pre-op Cond. Level of Consciousness/Mental Status: Can Participate in Eval, Alert and Oriented Pain Control: Adequate, Prn Tx Ordered Nausea/Vomiting Control: Adequate, Prn Tx Ordered Complications Possibly Related to Anesthesia: None Noted
== END 2017-08-26 09:37 | disposition home or self-care (01) ==
LOC: FSGY 05:48
PROVIDERS: ATTEND Surgery
DX: Z45.2 Encounter for adjustment and management of vascular access device (principal); C18.9 Malignant neoplasm of colon, unspecified
CPT/HCPCS: C1788; J0171; J1642; J2704

== ENCOUNTER → 2018-03-31 | Outpatient (CLI) | payer MEDICAID | LOC: FIMAGING 12:41 | PROVIDERS: ATTEND Internal Medicine Hematology & Oncology | DX: D47.2 Monoclonal gammopathy (principal); Z85.01 Personal history of malignant neoplasm of esophagus ==